=== PATIENT | female | born 1945 | race Caucasian/White ===

== ENCOUNTER 2018-10-27 09:36 | Emergency (ER) | payer MEDICARE ==
[~2018-10-27] VITALS: Ht 154.9 cm; Wt 65.4 kg
[~2018-10-27 09:36] MED LIST: ALLO300T PO; ASPI-496 PO; DAPA5TAB PO; LISI-167 PO; LORA10TA75 PO
[2018-10-27 10:10] LABS: BASOPHILS # (AUTO) 0.05 x10^3/uL (0-0.1); BASOPHILS % (AUTO) 1 % (0-1); EOSINOPHILS # (AUTO) 0.24 x10^3/uL (0-0.4); EOSINOPHILS % (AUTO) 5 % (1-7); LYMPHOCYTES # (AUTO) 0.81 x10^3/uL (1-3.4); LYMPHOCYTES % (AUTO) 16 % (22-44); MD NO; MEAN CORPUSCULAR HEMOGLOBIN 28.9 pg (27.0-34.8); MEAN CORPUSCULAR HGB CONC 32.6 g/dL (32.4-35.8); MEAN CORPUSCULAR VOLUME 88.6 fL (80-100); MEAN PLATELET VOLUME 6.9 fL (7.4-10.4); MONOCYTES # (AUTO) 0.97 x10^3/uL (0.2-0.8); MONOCYTES % (AUTO) 19 % (2-9); NEUTROPHILS # (AUTO) 3.11 x10^3/uL (1.8-6.8); NEUTROPHILS % (AUTO) 60 % (42-75); PLATELET COUNT 204 x10^3/uL (130-400); RED BLOOD COUNT 4.54 x10^6/uL (3.82-5.3); RED CELL DISTRIBUTION WIDTH 15.5 % (9.6-15.2)
[2018-10-27 10:14] LABS: ALANINE AMINOTRANSFERASE 80 U/L (12-78); ALBUMIN 2.9 g/dL (3.4-5.0); ANION GAP 8 mmol/L (5-15); CALCIUM 8.7 mg/dL (8.5-10.1); CHLORIDE 102 mmol/L (98-107); CREATININE 1.35 mg/dL (0.55-1.02)
[2018-10-27 10:16] LABS: ALKALINE PHOSPHATASE 267 U/L (45-117); BILIRUBIN,TOTAL 1.3 mg/dL (0.2-1.0); TOTAL PROTEIN 6.4 g/dL (6.4-8.2)
--- NOTE | 2018-10-27 10:37 | NUR ---
PT AMBULATORY TO ROOM 19 W/ C/O R LOWER ABD PAIN STARTED 1 MONTH AGO. PT VERBALIZES PAIN INCREASES THROUGHOUT THE DAY. PT DENIES N/V/D W/ ABD SX. PT RESTING ON [facility]. BART.
--- NOTE | 2018-10-27 11:30 | NUR ---
PT TAKEN TO US IN STABLE CONDITION.
--- NOTE | 2018-10-27 12:10 | NUR ---
PT RESTING ON GURNEY. NADN. GIORDANO.
--- NOTE | 2018-10-27 12:29 | NUR ---
SPOKE W/ JULIANNA FROM URINALYSIS WHO STATES UA REMAINS IN PROCESS.
[2018-10-27 12:50] VITALS: BP 125/62
--- NOTE | 2018-10-27 13:00 | NUR ---
JULIANNA FROM [facility] STATES NEW SAMPLE REQUIRED. PT ATTEMPTING TO PROVIDE SAMPLE.
[2018-10-27 13:17] LABS: MICROSCOPIC NOT IND
[2018-10-27 13:19] LABS: CULTURE INDICATED? NO
[2018-10-27] MEDS ORDERED: MAALOX/HYOSCYAMINE/LIDOCAINE 45 ML BTL PO ONE (13:30)
== END 2018-10-27 13:46 | disposition home or self-care (01) ==
LOC: ED 10:25
DX: R10.11 Right upper quadrant pain (principal); I10 Essential (primary) hypertension; E11.9 Type 2 diabetes mellitus without complications; Z90.49 Acquired absence of other specified parts of digestive tract
CPT/HCPCS: 36415; 76700; 80053; 81003; 83690; 85025; 99284

== ENCOUNTER 2018-11-24 07:43 | Emergency (ER) | payer MEDICARE ==
[~2018-11-24] VITALS: Ht 157.5 cm; Wt 60.0 kg
--- NOTE | 2018-11-24 07:52 | NUR ---
73 YR OLD FEMALE ARRIVED VIA EMS. PER REPORT, PT HAD BEEN "NORMAL" THEN BECAME "ALTERED" PT WAS GIVEN LIQUID YOGURT TO DRINK BY FAMILY (PT REPORTS "THAT WORKS BEST WHEN MY SUGARS ARE LOW") PT USES [facility] 35 TO 40 UNITS AT HS. PT INITIAL BS BY EMS WAS 76, CAME UP TO 90, THEN 95. PT GIVEN 50MLS D10, BS 137. PT INITALLY A&O X0 WITH [facility] OF 10 BY EMS. PT ARRIVED WITH 20 G IN RAC. PT STATES, "I REMEMBER WHO THE PRESIDENT IS. IT IS TRUMP" PT UNABLE TO STATE YEAR "I KNOW ITS 1999 SOMETHING" UNABLE TO STATE MONTH. PT PLACED ON MONITORS, SR PER MONITOR. O2 SAT 88-92% RA.
--- NOTE | 2018-11-24 08:00 | NUR ---
DR BLAS AT BEDSIDE TO EVAL PT.
--- NOTE | 2018-11-24 08:25 | NUR ---
FLAT DRIER: PT IN BED, NAD, REPORTS NO NEEDS AT THIS TIME, CALL LIGHT IN REACH. PHLEMBOTOMIST AT BEDSIDE TO DRAW LABS, AWAITING BLOODWORK & RADIOLOGY READS & DISPO.
[2018-11-24 08:44] LABS: BASOPHILS # (AUTO) 0.02 x10^3/uL (0-0.1); BASOPHILS % (AUTO) 0 % (0-1); EOSINOPHILS # (AUTO) 0.02 x10^3/uL (0-0.4); EOSINOPHILS % (AUTO) 0 % (1-7); LYMPHOCYTES # (AUTO) 0.81 x10^3/uL (1-3.4); LYMPHOCYTES % (AUTO) 11 % (22-44); MD NO; MEAN CORPUSCULAR HEMOGLOBIN 30.1 pg (27.0-34.8); MEAN CORPUSCULAR HGB CONC 33.9 g/dL (32.4-35.8); MEAN CORPUSCULAR VOLUME 88.5 fL (80-100); MEAN PLATELET VOLUME 6.6 fL (7.4-10.4); MONOCYTES # (AUTO) 0.51 x10^3/uL (0.2-0.8); MONOCYTES % (AUTO) 7 % (2-9); NEUTROPHILS # (AUTO) 6.13 x10^3/uL (1.8-6.8); NEUTROPHILS % (AUTO) 82 % (42-75); PLATELET COUNT 306 x10^3/uL (130-400); RED BLOOD COUNT 4.54 x10^6/uL (3.82-5.3); RED CELL DISTRIBUTION WIDTH 14.6 % (9.6-15.2)
[2018-11-24 08:52] LABS: ALANINE AMINOTRANSFERASE 31 U/L (12-78); ALBUMIN 3.3 g/dL (3.4-5.0); ANION GAP 9 mmol/L (5-15); CALCIUM 8.7 mg/dL (8.5-10.1); CHLORIDE 102 mmol/L (98-107); CREATININE 1.42 mg/dL (0.55-1.02)
[2018-11-24 08:55] LABS: D-DIMER 2.18 ug/mlFEU (0.00-0.52); INTERNATIONAL NORMALIZED RATIO 0.95 (0.93-1.1)
[2018-11-24 08:56] LABS: ALKALINE PHOSPHATASE 132 U/L (45-117); BILIRUBIN,TOTAL 0.4 mg/dL (0.2-1.0); TOTAL PROTEIN 6.8 g/dL (6.4-8.2); TROPONIN I < 0.015 ng/mL (0.000-0.045)
--- NOTE | 2018-11-24 09:11 | NUR ---
PT DOZING INTERMITTENTLY, AROUSES EASILY. CONT TO STATE MONTH, YEAR AND PRESIDENT CORRECTLY. FOLLOWS COMMANDS. SR-ST PER MONITOR. AUTO BP AND PULSE OX IN PLACE. RECEIVED CALL FROM PTS DTR CLARI. PER PT, "OK TO DISCUSS PTS CARE WITH HER DTR." NO NEEDS EXPRESSED AT THIS TIME.
[2018-11-24] MEDS ORDERED: MULT-706 PO (09:16)
[2018-11-24] MEDS ORDERED: FISH1CAP5 PO (09:16)
[2018-11-24] MEDS ORDERED: UBID100C41 PO (09:16)
[2018-11-24] MEDS ORDERED: COCO1000 PO (09:16)
[2018-11-24] MEDS ORDERED: CRAN200C2 PO (09:16)
[2018-11-24] MEDS ORDERED: VITA200C7 PO (09:16)
[2018-11-24] MEDS ORDERED: AMLO10TA8 PO (09:16)
--- NOTE | 2018-11-24 09:16 | NUR ---
PT IN CT
[2018-11-24] MEDS ORDERED: SODIUM CHLORIDE 0.9%, 500ML IVBOLUS ONE (09:30)
[2018-11-24] MEDS ORDERED: OMNIPAQUE 350 MG/ML, 100ML BOTTLE ONE (09:34)
--- NOTE | 2018-11-24 09:34 | NUR ---
PT RETURNED TO ROOM, AROUSES TO NAME. A&OX4. WAITING FOR FURTHER DISPOSITION. NO NEEDS EXPRESSED AT THIS TIME.
--- NOTE | 2018-11-24 10:00 | NUR ---
REPORT TO ÁNGEL BROWN
--- NOTE | 2018-11-24 10:05 | NUR ---
Resting in [facility]. A&Ox4. No needs at this time.
--- NOTE | 2018-11-24 10:21 | NUR ---
HIGH DENSITY PRESS OPERATOR: PT'S DAUGHTER, CLARI ROQUE, CONTACT INFO: [phone]
--- NOTE | 2018-11-24 10:47 | NUR ---
Ambulated with a steady gait to the restroom. 94%. updated.
[2018-11-24 11:33] VITALS: BP 110/61
--- NOTE | 2018-11-24 11:41 | NUR ---
Patient/Caregiver given discharge instructions and they have confirmed that they understand the instructions. Patient ambulatory with steady gait.
== END 2018-11-24 11:42 | disposition home or self-care (01) ==
LOC: ED 10:21
DX: E11.649 Type 2 diabetes mellitus with hypoglycemia without coma (principal); I10 Essential (primary) hypertension; Z79.4 Long term (current) use of insulin; Z90.49 Acquired absence of other specified parts of digestive tract
CPT/HCPCS: 36415; 71045; 71275; 80053; 83605; 83880; 84484; 85025; 85379; 85610; 85730; 87040; 93005; 99284; J7040; Q9967